=== PATIENT | male | born 1955 | race Caucasian/White ===

== ENCOUNTER 2017-12-05 21:04 | Inpatient (IN) | payer OTHER ==
[2017-12-05 21:12] LABS: ADD MAN DIFF? NO
[2017-12-05 21:15] LABS: WHITE BLOOD COUNT 6.6 10^3/ul (4.8-10.8)
[2017-12-05 21:15] LABS: BASOPHIL # 0.1 10^3/ul (0.0-0.1); BASOPHILS % 1.7 % (0.0-2.0); EOSINOPHILS # 0.3 10^3/ul (0.0-0.5); EOSINOPHILS % 3.8 % (0.0-7.0); HEMATOCRIT 46.6 % (42.0-52.0); HEMOGLOBIN 16.1 g/dl (14.0-18.0); LYMPHOCYTES # 4.3 10^3/ul (0.8-2.9); LYMPHOCYTES % 64.2 % (15.0-51.0); MEAN CORPUSCULAR HEMOGLOBIN 31.9 pg (29.0-33.0); MEAN CORPUSCULAR HGB CONC 34.5 g/dl (32.0-37.0); MEAN CORPUSCULAR VOLUME 92.5 fl (82.0-101.0); MEAN PLATELET VOLUME 8.8 fl (7.4-10.4); MONOCYTE # 0.4 10^3/ul (0.3-0.9); MONOCYTES % 6.6 % (0.0-11.0); NEUTROPHIL # 1.6 10^3/ul (1.6-7.5); NEUTROPHILS % 23.5 % (39.0-77.0); PLATELET COUNT 292 10^3/UL (140-415); RED BLOOD COUNT 5.04 10^6/ul (4.70-6.10); RED CELL DISTRIBUTION WIDTH 11.5 % (11.5-14.5)
[2017-12-05] MEDS: IOHEXOL 100 ML (21:18)
[2017-12-05] MEDS: SOD CHLORIDE 0.9% 100 ML (21:18)
[2017-12-05 21:27] LABS: HEMOGLOBIN A1C 5.2 % (0-5.9)
[2017-12-05 21:34] LABS: INR 0.98; PROTIME 13.1 Sec (11.9-14.9)
[2017-12-05 21:37] LABS: ALANINE AMINOTRANSFERASE 49 IU/L (13-69); ALBUMIN 4.9 g/dl (3.3-4.9); ALBUMIN/GLOBULIN RATIO 1.53; ALKALINE PHOSPHATASE 73 IU/L (42-121); ANION GAP 16 (8-16); ASPARTATE AMINO TRANSFERASE 39 IU/L (15-46); BILIRUBIN,INDIRECT 0.3 mg/dl (0-1.1); BILIRUBIN,TOTAL 0.3 mg/dl (0.2-1.3); BLOOD UREA NITROGEN 15 mg/dl (7-20); CALCIUM 9.8 mg/dl (8.4-10.2); CARBON DIOXIDE 28 mmol/L (21-31); CHLORIDE 104 mmol/L (97-110); CREATININE 0.72 mg/dl (0.61-1.24); GLUCOSE 114 mg/dl (70-220); POTASSIUM 4.2 mmol/L (3.5-5.1); SODIUM 144 mmol/L (135-144); TOTAL PROTEIN 8.1 g/dl (6.1-8.1)
[2017-12-05 21:38] LABS: ETHANOL < 10.0 mg/dl
[2017-12-05 21:48] LABS: TROPONIN-I < 0.012 ng/ml (0.00-0.12)
[2017-12-05] MEDS: ONDANSETRON 4 MG INJ IV (23:08)
[2017-12-05] MEDS: ASPIRIN 81 MG TAB PO (23:08)
[2017-12-05] MEDS: ACETAMINOPHEN 325 MG TAB PO (23:09)
[2017-12-06 01:04] LABS: ADD UMIC NO; UR ASCORBIC ACID 20 mg/dL (NEGATIVE); UR BILIRUBIN (Dip) NEGATIVE (NEGATIVE); UR BLOOD (Dip) NEGATIVE (NEGATIVE); UR CLARITY CLEAR (CLEAR); UR COLOR YELLOW (YELLOW); UR GLUCOSE (Dip) NEGATIVE (NEGATIVE); UR KETONES (Dip) NEGATIVE (NEGATIVE); UR LEUKOCYTE ESTERASE (Dip) NEGATIVE Leu/ul (NEGATIVE); UR NITRITE (Dip) NEGATIVE (NEGATIVE); UR SPECIFIC GRAVITY (Dip) 1.019 (1.003-1.030); UR TOTAL PROTEIN (Dip) NEGATIVE (NEGATIVE); UR UROBILINOGEN (Dip) NEGATIVE (NEGATIVE)
[2017-12-06] MEDS ORDERED: ONDANSETRON 4 MG INJ IV (01:30)
[2017-12-06] MEDS ORDERED: ALBUTEROL/IPRATROPIUM (NEB) 3 ML AMP HHN (01:30)
[2017-12-06] MEDS ORDERED: morphine 2 MG INJ IV (01:30)
[2017-12-06] MEDS ORDERED: ACETAMINOPHEN 325 MG TAB PO (01:30)
[2017-12-06] MEDS ORDERED: NACL 0.9% 3 ML SYG IV (01:30)
[2017-12-06 01:51] LABS: AMPHETAMINE/METHAMPHETAMINE Negative (NEGATIVE); BARBITURATES Negative (NEGATIVE); BENZODIAZEPINES Negative (NEGATIVE); CANNABINOIDS Negative (NEGATIVE); COCAINE Negative (NEGATIVE); OPIATES Negative (NEGATIVE)
[2017-12-06 07:11] LABS: ADD MAN DIFF? NO
[2017-12-06 07:15] LABS: BASOPHIL # 0.1 10^3/ul (0.0-0.1); BASOPHILS % 1.8 % (0.0-2.0); EOSINOPHILS # 0.1 10^3/ul (0.0-0.5); EOSINOPHILS % 3.3 % (0.0-7.0); HEMATOCRIT 43.5 % (42.0-52.0); LYMPHOCYTES # 1.5 10^3/ul (0.8-2.9); LYMPHOCYTES % 37.8 % (15.0-51.0); MEAN CORPUSCULAR HEMOGLOBIN 31.9 pg (29.0-33.0); MEAN CORPUSCULAR HGB CONC 34.5 g/dl (32.0-37.0); MEAN CORPUSCULAR VOLUME 92.6 fl (82.0-101.0); MEAN PLATELET VOLUME 8.9 fl (7.4-10.4); MONOCYTE # 0.3 10^3/ul (0.3-0.9); MONOCYTES % 6.6 % (0.0-11.0); NEUTROPHILS % 50.2 % (39.0-77.0); PLATELET COUNT 272 10^3/UL (140-415); RED CELL DISTRIBUTION WIDTH 11.4 % (11.5-14.5)
[2017-12-06 07:15] LABS: WHITE BLOOD COUNT 3.9 10^3/ul (4.8-10.8)
[2017-12-06 07:41] LABS: ALANINE AMINOTRANSFERASE 40 IU/L (13-69); ALBUMIN/GLOBULIN RATIO 1.33; ALKALINE PHOSPHATASE 51 IU/L (42-121); ANION GAP 12 (8-16); ASPARTATE AMINO TRANSFERASE 34 IU/L (15-46); BILIRUBIN,INDIRECT 0.6 mg/dl (0-1.1); BILIRUBIN,TOTAL 0.6 mg/dl (0.2-1.3); BLOOD UREA NITROGEN 14 mg/dl (7-20); CALCIUM 9.3 mg/dl (8.4-10.2); CARBON DIOXIDE 29 mmol/L (21-31); CHLORIDE 105 mmol/L (97-110); CHOL/HDL RATIO 3.8 RATIO; CHOLESTEROL 148 mg/dl (100-200); CREATININE 0.68 mg/dl (0.61-1.24); GLUCOSE 125 mg/dl (70-220); HDL CHOLESTEROL 38 mg/dl (30-78); LDL CHOLESTEROL,CALCULATED 88 mg/dl; MAGNESIUM 2.1 mg/dl (1.7-2.5); POTASSIUM 4.5 mmol/L (3.5-5.1); SODIUM 141 mmol/L (135-144); TRIGLYCERIDES 109 mg/dl (0-149)
[2017-12-06 08:23] LABS: HEMOGLOBIN A1C 5.2 % (0-5.9)
[2017-12-06] MEDS: ASPIRIN 81 MG TAB PO (09:57)
[2017-12-06] MEDS: ENOXAPARIN 40 MG/0.4 ML SYG SC (10:05)
[2017-12-06] MEDS ORDERED: ALBUTEROL HFA 8 GM INHALER INH (12:00)
[2017-12-06] MEDS ORDERED: DOCUSATE SODIUM 100 MG CAP PO (12:00)
[2017-12-06] MEDS ORDERED: GUAIFENESIN/CODEINE 5ML CUP PO (12:00)
[2017-12-06] MEDS: ATORVASTATIN 20 MG TAB PO (20:15)
[2017-12-06] MEDS: LEVETIRACETAM 500 MG TAB PO (21:08)
[2017-12-07 08:16] LABS: ADD MAN DIFF? NO
[2017-12-07 08:21] LABS: WHITE BLOOD COUNT 4.3 10^3/ul (4.8-10.8)
[2017-12-07 08:21] LABS: BASOPHIL # 0.1 10^3/ul (0.0-0.1); BASOPHILS % 1.9 % (0.0-2.0); EOSINOPHILS # 0.2 10^3/ul (0.0-0.5); HEMATOCRIT 47.7 % (42.0-52.0); HEMOGLOBIN 16.5 g/dl (14.0-18.0); LYMPHOCYTES # 1.5 10^3/ul (0.8-2.9); LYMPHOCYTES % 34.6 % (15.0-51.0); MEAN CORPUSCULAR HEMOGLOBIN 31.7 pg (29.0-33.0); MEAN CORPUSCULAR HGB CONC 34.6 g/dl (32.0-37.0); MEAN CORPUSCULAR VOLUME 91.7 fl (82.0-101.0); MEAN PLATELET VOLUME 8.9 fl (7.4-10.4); MONOCYTE # 0.3 10^3/ul (0.3-0.9); MONOCYTES % 7.5 % (0.0-11.0); NEUTROPHIL # 2.2 10^3/ul (1.6-7.5); NEUTROPHILS % 51.8 % (39.0-77.0); PLATELET COUNT 265 10^3/UL (140-415); RED CELL DISTRIBUTION WIDTH 11.7 % (11.5-14.5)
[2017-12-07 08:44] LABS: ANION GAP 15 (8-16); BLOOD UREA NITROGEN 14 mg/dl (7-20); CALCIUM 9.9 mg/dl (8.4-10.2); CARBON DIOXIDE 26 mmol/L (21-31); CHLORIDE 104 mmol/L (97-110); CREATININE 0.72 mg/dl (0.61-1.24); GLUCOSE 118 mg/dl (70-220); MAGNESIUM 2.1 mg/dl (1.7-2.5); PHOSPHORUS 3.5 mg/dl (2.5-4.9); POTASSIUM 4.5 mmol/L (3.5-5.1); SODIUM 140 mmol/L (135-144)
[2017-12-07] MEDS: LEVETIRACETAM 500 MG TAB PO ×2 (09:23→21:37)
[2017-12-07] MEDS: ASPIRIN 81 MG TAB PO (09:23)
[2017-12-07] MEDS: ENOXAPARIN 40 MG/0.4 ML SYG SC (09:24)
[2017-12-07] MEDS: ATORVASTATIN 20 MG TAB PO (21:37)
[2017-12-08] MEDS: ASPIRIN 81 MG TAB PO (08:25)
[2017-12-08] MEDS: LEVETIRACETAM 500 MG TAB PO ×2 (08:25→20:32)
[2017-12-08] MEDS: ENOXAPARIN 40 MG/0.4 ML SYG SC (08:31)
[2017-12-08] MEDS: SOD CHLORIDE 0.9% 500 ML IV (15:35)
[2017-12-08] MEDS: ATORVASTATIN 20 MG TAB PO (20:22)
== END 2017-12-08 20:25 | disposition home health service (06) | DRG 69 ==
LOC: MS4 22:52 → E/R 21:04
DX: G45.9 Transient cerebral ischemic attack, unspecified (principal); R13.10 Dysphagia, unspecified; E78.5 Hyperlipidemia, unspecified; R47.1 Dysarthria and anarthria; R25.1 Tremor, unspecified; Z79.82 Long term (current) use of aspirin; Z87.820 Personal history of traumatic brain injury
CPT/HCPCS: 36415; 70450; 71045; 71250; 80048; 80053; 80061; 80306; 80307; 81003; 83036; 83735; 84100; 84443; 84484; 85025; 85610; 85730; 92610; 93005; 93306; 93880; 95819; 96374; 97110; 97116; 97163; 97530; 99291-25

== ENCOUNTER 2019-01-02 07:01 | Day surgery (SDC) | payer OTHER ==
[~2019-01-02 07:01] MED LIST: EPHEDrine SULFATE 50 MG/5 ML SYG
[2019-01-02] MEDS ORDERED: LIDOCAINE 2% (SDV) 5 ML INJ (08:56)
[2019-01-02] MEDS ORDERED: PROPOFOL 40 ML (08:56)
[2019-01-02] MEDS ORDERED: MIDAZOLAM 1 MG/ML 2 ML INJ (08:57)
[2019-01-02] MEDS ORDERED: HYDROmorphONE 1 MG/5 ML IV SYRINGE IV (09:00)
[2019-01-02] MEDS ORDERED: ONDANSETRON 4 MG INJ IV (09:00)
== END 2019-01-02 11:52 | disposition home or self-care (01) ==
LOC: GIL 07:01
DX: Z12.11 Encounter for screening for malignant neoplasm of colon (principal); K64.1 Second degree hemorrhoids; K20.9 Esophagitis, unspecified; K29.30 Chronic superficial gastritis without bleeding; E78.5 Hyperlipidemia, unspecified; J45.909 Unspecified asthma, uncomplicated; Z86.73 Personal history of transient ischemic attack (TIA), and cerebral infarction without residual deficits; Z79.82 Long term (current) use of aspirin
CPT/HCPCS: 43239; 88305; 88312

== ENCOUNTER 2019-07-11 19:13 | Emergency (ER) | payer OTHER ==
[2019-07-11 21:02] LABS: ADD MAN DIFF? NO
[2019-07-11 21:04] LABS: WHITE BLOOD COUNT 5.4 10^3/ul (4.8-10.8)
[2019-07-11 21:04] LABS: BASOPHIL # 0.1 10^3/ul (0.0-0.1); BASOPHILS % 0.9 % (0.0-2.0); EOSINOPHILS % 0.2 % (0.0-7.0); HEMATOCRIT 48.5 % (42.0-52.0); HEMOGLOBIN 16.3 g/dl (14.0-18.0); LYMPHOCYTES # 1.1 10^3/ul (0.8-2.9); LYMPHOCYTES % 20.4 % (15.0-51.0); MEAN CORPUSCULAR HEMOGLOBIN 31.8 pg (29.0-33.0); MEAN CORPUSCULAR HGB CONC 33.6 g/dl (32.0-37.0); MEAN CORPUSCULAR VOLUME 94.5 fl (82.0-101.0); MEAN PLATELET VOLUME 8.5 fl (7.4-10.4); MONOCYTE # 0.4 10^3/ul (0.3-0.9); NEUTROPHIL # 3.8 10^3/ul (1.6-7.5); NEUTROPHILS % 70.1 % (39.0-77.0); PLATELET COUNT 294 10^3/UL (140-415); RED BLOOD COUNT 5.13 10^6/ul (4.70-6.10); RED CELL DISTRIBUTION WIDTH 11.6 % (11.5-14.5)
[2019-07-11] MEDS: LIDOCAINE/MYLANTA 40 ML BTL PO (21:07)
[2019-07-11 21:12] LABS: ALANINE AMINOTRANSFERASE 54 IU/L (13-69); ALBUMIN 4.7 g/dl (3.3-4.9); ALKALINE PHOSPHATASE 66 IU/L (42-121); ANION GAP 7 (5-13); ASPARTATE AMINO TRANSFERASE 48 IU/L (15-46); BILIRUBIN,INDIRECT 0.5 mg/dl (0-1.1); BILIRUBIN,TOTAL 0.5 mg/dl (0.2-1.3); BLOOD UREA NITROGEN 19 mg/dl (7-20); CALCIUM 10.1 mg/dl (8.4-10.2); CARBON DIOXIDE 29 mmol/L (21-31); CHLORIDE 102 mmol/L (97-110); CREATININE 0.76 mg/dl (0.61-1.24); Estimated GFR > 60 mL/min (>60); GLUCOSE 107 mg/dl (70-220); LIPASE 92 U/L (23-300); POTASSIUM 4.8 mmol/L (3.5-5.1); SODIUM 138 mmol/L (135-144); TOTAL PROTEIN 8.6 g/dl (6.1-8.1)
[2019-07-11 21:23] LABS: TROPONIN-I < 0.012 ng/ml (0.000-0.120)
== END 2019-07-11 23:53 | disposition home or self-care (01) ==
LOC: E/R 19:13
DX: K21.9 Gastro-esophageal reflux disease without esophagitis (principal); M54.5 Low back pain; J45.909 Unspecified asthma, uncomplicated; R40.2142 Coma scale, eyes open, spontaneous, at arrival to emergency department; R40.2252 Coma scale, best verbal response, oriented, at arrival to emergency department; R40.2362 Coma scale, best motor response, obeys commands, at arrival to emergency department; Z79.82 Long term (current) use of aspirin; Z86.73 Personal history of transient ischemic attack (TIA), and cerebral infarction without residual deficits
CPT/HCPCS: 36415; 71045; 72125; 72128; 72131; 80053; 83690; 84484; 85025; 93005; 99285-25